=== PATIENT | female | born 2005 | race Two or more races ===

== ENCOUNTER → 2025-05-21 | Outpatient (CLI) | payer MEDICAID, SELFPAY ==
--- NOTE | 2025-05-21 16:00 | XR_ITS ---
Examination: Pelvic ultrasound, transabdominal, complete Technique: Transabdominal ultrasound of the pelvis performed using grayscale imaging Date and time of exam: May 13, 2025 1559 hours INDICATIONS: Vaginal bleeding beginning 2 months ago with pelvic pain FINDINGS: Uterus 8.1 cm endometrial stripe 1.2 cm No uterine mass or intrauterine gestation Right ovary 3.3 cm arterial flow. Left ovary 2.4 cm arterial flow Mild fluid in the cul-de-sac IMPRESSION: Negative examination
== END | disposition home or self-care (01) ==
LOC: CDIM 15:37
PROVIDERS: PCP Physician Assistant; Referring Provider Physician Assistant; Visit Provider Physician Assistant
DX: N93.9 Abnormal uterine and vaginal bleeding, unspecified (principal)
CPT/HCPCS: 76856